=== PATIENT | female | born 1940 | race Caucasian/White ===

== ENCOUNTER 2019-12-07 10:37 | Outpatient (CLI) | payer MEDICARE, BC, SELFPAY | END 2019-12-07 10:38 | disposition home or self-care (01) | LOC: ANHBWCAUD 10:38 | DX: H91.93 Unspecified hearing loss, bilateral (principal) | CPT/HCPCS: 99199 ==

== ENCOUNTER 2020-09-09 13:05 | Outpatient (CLI) | payer MEDICARE, BC, SELFPAY | END 2020-09-09 13:06 | disposition home or self-care (01) | DX: H90.3 Sensorineural hearing loss, bilateral (principal) | CPT/HCPCS: 92557; 92567 ==

== ENCOUNTER 2021-09-15 08:59 | Outpatient (CLI) | payer MEDICARE, BC, SELFPAY | END 2021-09-15 09:00 | disposition home or self-care (01) | DX: H90.3 Sensorineural hearing loss, bilateral (principal) | CPT/HCPCS: 92557; 92567 ==

== ENCOUNTER 2022-01-12 08:55 | Emergency (ER) | payer MEDICARE, BC, SELFPAY ==
[2022-01-12 09:00] VITALS: BP 100/53; PULSE 81; RESP 16; TEMP 36.5; O2SAT 96
--- NOTE | 2022-01-12 09:12 | ECG_ITS ---
Measurements Intervals [place] Rate: 76 P: 57 WY: 158 QRS: -14 QRSD: 93 T: 37 QT: 387 QTc: 436 Interpretive Statements SINUS RHYTHM DELAYED PRECORDIAL R/S TRANSITION BORDERLINE ECG NO PREVIOUS ECG AVAILABLE FOR COMPARISON Electronically Signed On 01-12-2022 9:55:23 ZIPPER TRIMMER HAND by Anatoly Monsivais D.O.
--- NOTE | 2022-01-12 09:24 | ED.GENADULT ---
HPI - General Adult General Stated complaint: slurring words, running into things lethargic Source: patient and other (CAREGIVER) Mode of arrival: wheelchair Limitations: altered mental status History of Present Illness HPI narrative: Patient brought in by caregiver from detention with reports of AMS. Caregiver here in her company indicates she was informed by another resident at the home that pt was having difficulty putting her shoes on at 0800. Caregiver went in to check on patient and she was slumped over in a chair. She was exhibiting change in speech. Caregiver indicates that it was difficult to understand her verbally. Caregiver states that baseline status is A+Ox3 and ambulatory with walker. Last known normal was 0700 when pt was eating in dining room. On my examination pt denies any complaints whatsoever. Related Data Home Medications Medication Instructions Recorded Confirmed cholecalciferol (vitamin D3) 125 125 mcg PO DAILY 01/12/22 01/12/22 mcg (5,000 unit) tablet (Vitamin D3) diphenhydramine HCl 25 mg capsule 25 mg PO QID PRN Allergy Symptoms 01/12/22 01/12/22 (Banophen) furosemide 20 mg tablet 20 mg PO DAILY 01/12/22 01/12/22 levothyroxine 88 mcg tablet 88 mcg PO DAILY 01/12/22 01/12/22 memantine 28 mg capsule 28 mg PO DAILY 01/12/22 01/12/22 sprinkle,extended release 24hr multivitamin-iron 9 mg-folic acid 1 tablet PO DAILY 01/12/22 01/12/22 400 mcg-calcium and minerals tablet (Therems-M) naproxen sodium 220 mg capsule 220 mg PO BID 01/12/22 01/12/22 potassium chloride 20 mEq 20 meq PO DAILY 01/12/22 01/12/22 tablet,extended release(part/cryst) rivastigmine tartrate 3 mg capsule 3 mg PO BID 01/12/22 01/12/22 sertraline 100 mg tablet 100 mg PO DAILY 01/12/22 01/12/22 spironolactone 50 mg tablet 50 mg PO DAILY 01/12/22 01/12/22 Allergies Allergy/AdvReac Type Severity Reaction Status Date / Time No Known Allergies Allergy Mild Verified 01/12/22 09:28 Review of Systems Review of Systems: CONSTITUTIONAL: Denies fever, chills, or sweats. EYES: Denies visual changes, redness, or discharge. ENT: Denies rhinorrhea, congestion, sore throat, or otalgia. CARDIOVASCULAR: Denies chest pain, palpitations, or edema. RESPIRATORY: Denies cough or dyspnea. GASTROINTESTINAL: Denies abdominal pain, nausea, vomiting, or diarrhea. GENITOURINARY: Denies dysuria or hematuria. SKIN: Denies rash or itching. MUSCULOSKELETAL: Denies back pain, joint pain, or myalgia. NEUROLOGIC: Caregiver reports change in patient's speech. Pt denies headache, numbness, dizziness, or weakness. PSYCHIATRIC: Denies anxiety or depression. [facility] Past Medical History Medical History (Updated 01/12/22 @ 09:39 by Rory Moore, CARPET WINDER, ) Constipation Dementia Hypertension Hypothyroid Seizure Vitamin D deficiency Surgical History Surgical History Surgical history unknown Family History Family History Mother Family history of Alzheimer's disease Father Family history of heart disease in male family member before age 55 Other Diabetes mellitus Social History Social History Smoking status: Never smoker Alcohol intake: never Exam Narrative: GENERAL: Well-appearing, well-nourished, and in no acute distress. HEAD: Normocephalic, atraumatic. EYES: PERRLA and EOMI. ENT: Nares clear, no rhinorrhea or epistaxis. Edentulous. Mucous membranes moist. Oropharynx without tonsillar hypertrophy exudate or other lesions. Bilateral TMs pearly pickett nonbulging NECK: Supple. No adenopathy or masses. No carotid bruits or JVD CHEST: Clear to auscultation. No respiratory distress. No wheezes rales or rhonchi HEART: Regular rate and rhythm. No murmur heard. Normal peripheral pulses. ABDOMEN: Soft, nontender, nondistended, normal active bowel
== END 2022-01-12 09:39 | disposition short-term general hospital (02) ==
PROVIDERS: Emergency Provider Nurse Practitioner; PCP Physician Assistant
DX: R41.82 Altered mental status, unspecified (principal); R47.1 Dysarthria and anarthria; F03.90 Unspecified dementia, unspecified severity, without behavioral disturbance, psychotic disturbance, mood disturbance, and anxiety; I10 Essential (primary) hypertension; E03.9 Hypothyroidism, unspecified; E55.9 Vitamin D deficiency, unspecified
CPT/HCPCS: 93005; 99213; G0463

== ENCOUNTER 2022-11-03 13:24 | Outpatient (CLI) | payer MEDICARE, BC, MEDICAID, SELFPAY | END 2022-11-03 13:25 | disposition home or self-care (01) | LOC: ANHBWCAUD 13:28 | PROVIDERS: PCP Physician Assistant; Visit Provider Physician Assistant | DX: H91.93 Unspecified hearing loss, bilateral (principal) | CPT/HCPCS: 92557; 92567 ==

== ENCOUNTER 2023-11-01 08:56 | Outpatient (CLI) | payer MEDICARE, BC, MEDICAID, SELFPAY | END 2023-11-01 08:57 | disposition home or self-care (01) | LOC: ANHBWCAUD 08:56 | PROVIDERS: PCP Physician Assistant; Visit Provider Family Medicine | DX: H90.3 Sensorineural hearing loss, bilateral (principal); H61.23 Impacted cerumen, bilateral | CPT/HCPCS: 92557; 92567 ==

== ENCOUNTER 2024-11-06 09:30 | Outpatient (CLI) | payer MEDICARE, BC, MEDICAID, SELFPAY ==
--- OUTSIDE RECORDS SUMMARY | 2009-12-24 03:30 | XMS_ITS | Continuity of Care Document ---
Author Organization Formerly [facility] [place], [place] Address [address] [place] [address] Phone Care Team Providers Care Inspector Wire Rope Name Role Phone Rm Pena Unavailable Unavailable Procedures Procedure Date Eye Exam & Treatment Dilated Macular Or Fundus Exam Findings Communicat Oct Office/outpatient Visit, Est Office/outpatient Visit, Est Optic Nerve Head Eval No Script Dec- Office/outpatient Visit, Est Optic Nerve Head Eval No Script Optic Nerve Topography-Professional Optic Nerve Topography-Professional Corneal Pachymetry Fundus Photography W/ Report Optic Nerve Topography Optic Nerve Topography Visual Field Examination-Professional De Visual Field Examination(s) Eye Exam & Treatment Oct Optic Nerve Head Eval Eye Exam & Treatment Visual Functional Status Assessed Refraction Advance Directives Directive Yes / No Effective Date File Name No Information Encounters Encounter Description Practice Location Reason(s) For Visit Diagnoses Date Provider Providers Copied on Encounter [facility], [address], [place], [place], [id number], [place] tel:[phone] [facility] No Information Oct-2 0-201 0 Becky Abdalla. [address] , [address], [place], [address], [place]. tel:[phone] Office/outpat ient Visit, [facility], [address], [place], [place], [address], [place] tel:[phone] [facility] No Information 5-201 0 Becky Abdalla. [address] [facility] [address] , [address], [place], [place], [facility], . tel:[phone] Office/outpat ient Visit, [facility], [address] [place] [address] [address], [place], [place], [address], [place] tel:[phone] [facility] No Information 2-200 9 Becky Abdalla. [address] [facility] , [address], [place], [place], [facility], . tel:[phone] Office/outpat ient Visit, [facility], [address] [place] [address] [address], [place], [place], [address], [place] tel:[phone] [facility] No Information 5-200 9 Becky Abdalla. [address] [place], [place] [address] , [address], [place], [place], [facility], [place]. tel:[phone] Referring Provider: [address], [place], [place], [facility]. tel:[phone] [facility]ly [facility], [address] [place] [address] [address], [place], [place], [address], [place] tel:[phone] [facility] No Information 7-200 9 [facility]. [facility] , [address], [place], [facility], [place]. tel:[phone] Referring Provider: [address], [place], [facility]. tel:[phone] [facility]ly [facility], [address] [place] [address] [address], [place], [place], [address], [place] tel:[phone] [facility] No Information Dec-0 8-200 8 Becky Abdalla. [facility] [address], [address], [place], [facility], . tel:[phone] Referring Provider: Rm Sousa, [facility] [address], [place], [facility]. tel:[phone] [facility]ly [facility], [address] [place] [address] [address], [place], [place], [address], tel:[phone] [facility] No Information Dec-0 5-200 8 Becky Abdalla. [facility] [address] [address], [address], [place], [facility], . tel:[phone] Referring Provider: Rm Sousa, [facility] [address], [place], [facility]. tel:[phone] [facility], [address] [place] [address] [address], [place], [place], [address], tel:[phone] [facility] No Information Oct-2 0-200 8 Becky Abdalla. [facility] [address] [address], [address], [place], [facility], . tel:[phone] [facility], [address] [place] [address] [address], [place], [place], [address], tel:[phone] [facility] No Information Oct-1 7-200 7 Becky Abdalla. [facility] [address] [address], [address], [place], [facility], . tel:[phone] Family History Family Member Type Diagnosis Age At Onset No Information Payers Payer name Insurance type Covered democrat ID Authoriza tion(s) Medicare [facility] [id number] [place] BL [id number] Social History Type Description Quantity Date Captured Comments Sex Female Smoking Status No Information Chief Complaint And Reason For Visit No Information Reason For Referral Reason For Referral No Information History Of Present Illness Encounter Date Complaint History Of Prese nt Illness No Information Functional Status Date Functional Assessmen t No Information Instructions Date Instruction Additional Infor mation No Information Assessments Type Assessment Date No Information Patient Care Teams Name Effective Dates (start - stop) Status Members No Information
--- OUTSIDE RECORDS SUMMARY | 2024-11-06 09:45 | XMS_ITS | Clinical Summary ---
Author Organization [facility] [employer] Address [address] [place] [address] Care Team Providers Care Truck Headlight Assembler Name Role Phone Curt Logan MD Primary Care Provider [phone] Source Comments [facility],non-owned Affiliates and Associated Physician Practices is amultiple site organization consisting of ambulatory clinics and hospital sitesin [place], [place], [place] and [place]. This disclosure is being madepursuant to the Care Everywhere program and may not contain all information available regarding this patient. Last updated 17.[facility] [employer] Allergies No known active allergies Medications * Be aware that medications may not be up to date on this document. Alwaysverify current medications with the patient. Aspirin Low Dose 81 MG tablet 04/24/2022 Active atorvastatin (Lipitor) 10 MG tablet 04/24/2022 Active bisacodyl EC (Dulcolax) 5 MG tablet Take 2 (two) tablets by mouth once daily as needed Active vitamin D (Cholecaciferol ) 125 MCG (5000 UT) capsule 04/24/2022 Active furosemide (Lasix) 20 MG tablet 04/24/2022 Active memantine ER 24 hr (Namenda XR) 28 MG capsule 04/24/2022 Activ e naproxen sodium (Aleve) 220 MG tablet Take 1 (one) tablet by mouth 2 times daily with morning and evening meal Active neomycin-bacitr acin-polymyxin (Neosporin) 400-5-5000 topical ointment Apply to affected area 2 times daily as needed Active potassium chloride ER (Klor-Con M) 20 MEQ tablet 04/24/2022 Active rivastigmine (Exelon) 3 MG capsule 04/24/2022 Active sertraline (Zoloft) 100 MG tablet 04/24/2022 Active spironolactone (Aldactone) 50 MG tablet 04/24/2022 Active venlafaxine (Effexor) 37.5 MG tablet 05/22/2021 Active levothyroxine (Synthroid) 100 MCG tablet Take 1 (one) tablet by mouth once daily 06/10/2023 Active Active Problems Problem Noted Date Diagnosed Date 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 Dyspnea 05/07/2022 Dyslipidemia 05/07/2022 (HFpEF) heart failure with preserved ejection fr action 05/07/2022 Dementia, senile 05/07/2022 Social History Tobacco Use Types Packs/Day Years Used Date Smoking Tobacco: Never Smokeless Tobacco: Never Alcohol Use Standard Drinks/Week Comments Never 0 (1 standard drink = 0.6 oz pur e alcohol) Comments Unknown Sex and Gender Information Value Date Recorded Sex Assigned at Not on file Legal Sex Female 9:53 AM CDT Gender Identity Not on file Sexual Orientation Not on file Last Filed Vital Signs Vital Sign Reading Time Taken Comments Blood Pressure 119/60 12/23/2023 10:35 AM CDT Pulse 75 12/23/2023 10:35 AM CDT Temperature 36.5 C (97.7 F) 05/28/2022 12:35 PM CDT Respiratory Rate 12 05/28/2022 1:15 PM CDT Oxygen Saturation 97% 12/23/2023 10:35 AM CDT Inhaled Oxygen Concentration - - Weight 63 kg (139 lb) 12/23/2023 10:35 AM CDT Height 157.5 cm (5' 2) 12/23/2023 10:35 AM CDT Body Mass Index 25.42 12/23/2023 10:35 AM CDT Plan of Treatment Health Maintenance Due Date Last Done Comments MEDICARE AWV 12 MONTHS 1942 DTAP/TDAP/TD VACCINES (1 - Tdap) 1961 PNEUMOCOCCAL VACCINE 50+ (1 of 2 - PCV) 1961 ZOSTER VACCINE (1 of 2) 02/21/1992 Respiratory Syncytial Virus (RSV) Vaccine Pt: or over 60 yrs (1 - 1-dose 75+ series) 2017 COVID-19 VACCINE ( - 2023- season) 2023 DEPRESSION SCREENING 03/07/2024 INFLUENZA VACCINE (#1) 2024 , 12/17/2021, 12/11/2020, Additional history exists BONE DENSITY TESTING Completed 10/06/2021, 06/23/19 17 HEPATITIS B VACCINE Aged Out No longe r eligible based on patient's age to complete this topic HIB VACCINE Aged Out No longer eligi ble based on patient's age to complete this topic HPV VACCINE Aged Out No longer eligi ble based on patient's age to complete this topic MENINGOCOCCAL (Group B) VACCINE SHARED DECISION-MAKING Aged Out No longer eligible based on patient's age to complete this topic MENINGOCOCCAL GROUPS A/C/Y/W VACCINE Aged Out No longer eligible based on patient's age to complete this topic Insurance MEDICARE [facility] MEDICAID - OUT OF STATE MEDICARE [facility] MEDICAID - [place] Care Teams Truck Headlight Assembler Relationship Specialty Start Date End Date Curt Logan MD [address] [place] [id number] PCP - General 06/20/18
--- OUTSIDE RECORDS SUMMARY | 2024-11-06 09:45 | XMS_ITS | Patient Health Record ---
Author Organization [facility] [employer] Address [address] [place] [address] Care Team Providers Care Museum Technician Name Role Phone José Luis Lara Unavailable [phone] Reason For Referral No Information Medications Medication SIG (Take, Route, Frequency, Duration) Notes Start Date End Date Status Sertraline HCl 25 MG Tablet Oral 08/21/2021 Active Acetaminophen 325 MG Tablet Oral 08/21/2021 Active Rivastigmine Tartrate 3 MG Capsule Oral 08/21/2021 Active Furosemide 20 MG Tablet Oral 08/21/2021 Active Memantine HCl ER 28 MG Capsule Extended Release 24 Hour Oral 08/21/2021 Active TRIAMCINOLONE ACETONIDE 0.1 %-EMOLLIENT COMB.NO.45 TOPICAL CREAM *Reorder from [employer] for eRx and Interaction Alerts* 08/21/2021 Active NEOMYCIN-BACITRACN ZN-POLYMYXIN 3.5 MG-500 UNIT-10,000 UNIT TOP OINT *Reorder from [employer] for eRx and Interaction Alerts* 08/21/2021 Active Venlafaxine HCl ER 37.5 MG Capsule Extended Release 24 Hour Oral 08/21/2021 Active Bisacodyl EC 5 MG Tablet Delayed Release Oral 08/21/2021 Activ e Sertraline HCl 50 MG Tablet Oral 08/21/2021 Active Permethrin 5% Cream External 08/21/2021 Active Vitamin D3 Ultra Strength 125 MCG (5000 UT) Capsule Oral 08/21/2021 Active Naproxen Sodium 220 mg Capsule Oral 08/21/2021 Active ALUM-MAG HYDROXIDE-SIMETHICONE 200-200-20 mg/5 mL Suspension Oral *Reorder from [employer] for eRx and Interaction Alerts* 08/21/2021 Active Sertraline HCl 100 MG Tablet Oral 08/21/2021 Active Therems-M *Pick strength-form from [employer] for eRX* 08/21/2021 Active guaiFENesin 100 MG/5ML Liquid Oral 08/21/2021 Active Spironolactone 50 MG Tablet Oral 08/21/2021 Active Potassium Chloride Nadja ER 20 MEQ Tablet Extended Release Oral 08/21/2021 Active Levothyroxine Sodium 88 MCG Tablet Oral 08/21/2021 Active Immunizations Vaccine Route Administration Date Status Comme nts Influenza virus vaccine, quadrivalent (IIV4), split virus, 0.25 mL dosage Unknown 12/05/2017 Administered Influenza virus vaccine, quadrivalent (IIV4), split virus, 0.25 mL dosage Unknown 12/13/2018 Administered Influenza, high dose seasonal Unknown 11/25/2014 Admini stered Influenza, high dose seasonal Unknown 11/11/2015 Admini stered Influenza, injectable, MDCK, preservative free Unknown 12/13/2018 Administered Influenza, seasonal, injecta ble, preservative free, 3 yrs and above Unknown 01/24/2017 Administered Influenza, unspecified formulation Unknown 12/17/2011 A dministered Influenza, unspecified formulation Unknown 12/11/2012 A dministered Influenza, unspecified formulation Unknown 12/18/2013 A dministered Influenza, unspecified formulation Unknown 12/21/2019 A dministered Influenza, unspecified formulation Unknown 12/11/2020 A dministered Novel [id number], preservative free Unknown 12/15/2016 Administered Novel [id number], preservative free Unknown 12/22/2017 Administered Pfizer [employer] Covid-19 Vac cine 2nd dose Unknown 04/15/2020 Administered Pfizer [employer] Covid-19 Vac cine 2nd dose Unknown 05/06/2020 Administered Pfizer [employer] Covid-19 Vac cine 2nd dose Unknown 12/11/2020 Administered Pneumococcal conjugate PCV 13 Unknown 11/25/2014 Admini stered Pneumococcal conjugate PCV 13 Unknown 11/11/2015 Admini stered Pneumococcal conjugate PCV 13 Unknown 01/31/2017 Admini stered Pneumococcal polysaccharide PPV23 Unknown 11/11/2015 Ad ministered Tdap Unknown 06/08/2018 Administered Social History Social History Additional Details Category Social Info Options Details Migrated Social History Migrated Social History Alcohol Intake: None 05/01/2018,Tobacco Years: Never smoker 01/05/2018 Plan Of Treatment No Information Insurance Providers Payer Name Payer Address Payer Phone Subscriber Number Group Number Insured Name Patient Relationship to Insured Coverage Start Date Coverage End Date Medicare-I l Medicare [address] [place] [phone] [id number] AMARILIS ADAMS Self - patient is the insured Bc-[place] - Fep Ppo [address] [place] [address] [id number] AMARILIS ADAMS Self - patient is the insured Medicaid-[place] l Medicaid [address] [address] [place] [address] [id number] AMARILIS ADAMS Self - patient is the insured
--- OUTSIDE RECORDS SUMMARY | 2024-11-06 09:45 | XMS_ITS | Clinical Summary ---
Author Organization [facility] Address [address] [place] [address] Phone Care Team Providers Care Fire And Explosion Investigator Name Role Phone Nivia Domingo PAC Primary Care Pro vider Yecenia Caballero APRN, RN DOCUMENTATION Unavailable + [phone] Julian Buchanan MD Unavailable [phone] Rosa Quintero APRN, PROJECT MANAGER/DESIGN MANAGER Unavailable Allergies No known active allergies Medications furosemide (LASIX) 20 MG Tablet Take 1 Tab by mouth daily. 90 Tab 3 6 Active NAMENDA XR 28 MG CAPSULE SR 24 HR Take 1 Cap by mouth daily. 30 Cap 99 6 Active rivastigmine (EXELON) 3 MG CapsuleIndications :1 tab 7am and 9om Take 1 Cap by mouth 2 times daily. Indications : 1 tab 7am and 9om 60 Cap 1 6 Active spironolactone (ALDACTONE) 50 MG Tablet Take 1 Tab by mouth daily. 30 Tab 3 6 Active diphenhydrAMINE (BENADRYL) 25 MG Capsule Take 25 mg by mouth every 6 hours as needed. Active acetaminophen (TYLENOL) 325 MG Tablet Take 650 mg by mouth every 4 hours as needed. Active Calcium & Magnesium Carbonates (MYLANTA PO) Take 30 mL by mouth every 4 hours as needed. Active bisacodyl EC (DULCOLAX) 5 MG Tablet Delayed Response Take 10 mg by mouth daily as needed for Constipatio n. Active BISMUTH SUBSALICYLATE PO Take 30 mL by mouth as needed for Other. Active aluminum & magnesium hydroxide-simethic one (MAALOX, MYLANTA) 200-200-20 MG/5ML Suspension Take 30 mL by mouth every 4 hours as needed. Active potassium chloride SA (KLORCON M) 20 MEQ Tablet Controlled Release Take 1 Tab by mouth daily. 90 Tab 3 7 Active Cholecalciferol (VITAMIN D3) 5000 units Capsule Take 1 daily 30 Cap 7 Active naproxen sodium (ANAPROX) 220 MG Tablet Take 220 mg by mouth 2 times daily (with meals). Active sertraline (ZOLOFT) 100 MG Tablet 2 Active Multiple Vitamins-Minerals (THEREMS-H PO) Take by mouth. Active aspirin EC 81 MG Tablet Delayed Response Take 1 Tablet by mouth daily. 2 Active atorvastatin (LIPITOR) 10 MG Tablet Take 1 Tablet by mouth daily. 90 Tablet 3 2 Active levothyroxine (SYNTHROID) 100 MCG Tablet Take 1 Tablet by mouth daily. 90 Tablet 3 4 Active diphenhydrAMINE-zi nc acetate (Banophen) 2-0.1 % Cream 0 Active Active Problems Problem Noted Date Diagnosed Date Primary osteoarthritis of left hip 07/13/2018 Overview (11/17/2018): Dr Mcgarry H/O colonoscopy 11/16/2017 Overview (11/16/2017): 02-16-2016 Breast mass, left 05/23/2017 CAP (community acquired pneumonia) 01/30/2017 Influenza A 01/30/2017 Gait instability 11/10/2016 Uses walker 11/10/2016 Varicose veins of left lower extremity 7 Presbycusis of both ears 06/16/2016 Central auditory processing disorder (CAPD) 06/05 H/O mammogram 06/08/2016 Overview (06/08/2016): : benign Dermatophytosis of nail 06/04/2016 Tympanosclerosis involving tympanic membrane onl y 05/18/2016 Low vitamin D level 04/29/2016 At risk for electrolyte imbalance 04/14/2016 Intellectual delay 11/11/2015 Seizure 11/11/2015 Late onset Alzheimer's disea se without behavioral disturbance 11/11/2015 Spinal stenosis 11/11/2015 Hypothyroid 11/11/2015 Edema 11/11/2015 Encounters Date Type Department Care Team Description 11/01/2024 10:30 AM CDT Office Visit [facility] [address] [place] [address] Nivia Domingo PAC Hypothyroidism, unspecified type (Primary Dx); Late onset Alzheimer's disease without behavioral disturbance (HCC); Low vitamin D level; Vitamin D deficiency; Need for hepatitis C screening test; Screening for osteoporosis; Post-menopausal Discharge Disposition: Discharged to home or Selfcare 11/01/2024 Travel 10/11/2024 Results Follow-Up [facility] [address] [place] [address] Patrick Owusu MD [facility]AR[facility] SCREENING BILATERAL DIGITAL W CAD 10/10/2024 12:00 PM CDT - 10/10/2024 11:59 PM CDT Hospital [facility] [address] [place] [address] Nivia Domingo PAC Discharge Disposition: Discharged to home or Selfcare 10/10/2024 Travel 10/01/2024 Results Follow-Up [facility] Adult Pediatric Inpatient Virtual [address] [place] [address] Rosa Quintero APRN, CNP CMP (COMPREHENSIVE METABOLIC PANEL) 09/12/2024 9:00 AM CDT Office Visit [facility] [address] [place] [address] Rosa Quintero APRN, CNP Primary hypertension (Primary Dx); Mitral valve insufficiency, unspecified etiology; Hyperlipidemia, unspecified hyperlipidemia type Discharge Disposition: Discharged to home or Selfcare 09/12/2024 Travel 08/07/2024 Transcribe Orders [facility] [address] [place] [address] [place] [address] Nivia Domingo, PAC Visit for screening mammogram (Primary Dx) from Last 3 Months Immunizations Immunization Administration Dates Next Due Influenza Vaccine greater than 3 yrs 01/24/2017 Influenza Vaccine, Quadrivalent, PF 11/06,12/17/2021,12/11/2020,2017,12/15/2016 Influenza Vaccine,unspecifie d Formulation 12/18/2013,12/11/2012,12/17/2011 Influenza, Injectable, Mdck,quadrivalent,with Preservative 12/13/2018 Influenza, Injectable, Quadrivalent 12/05/2017 Influenza, Quadrivalent, Adjuvanted 12/21/2019 Influenza, Seasonal, Injecta ble, Undefined 01/24/2017 Influenza, high-dose, trivalent, PF 11/11/2015,0 11/25/2014 Influenza,Split Virus,Trivalent,Injectable,PF 11/25/2023 PNEUMONIA ADULT IM [id number] 11/11/2015 PUR FLU HIGH DOSE (FLUZONE) 11/11/2015 Pneumococcal Vaccine - 13 Valent 01/31/2017,11/06 Pneumococcal Vaccine Adult - 23 Valent 11/11/2015 TDAP Vaccine 06/08/2018 Family History Relation Name Status Comments Father Mother Social History Tobacco Use Types Packs/Day Years Used Date Smoking Tobacco: Never Smokeless Tobacco: Never Tobacco Cessation:Counseling Given: No Alcohol Use Standard Drinks/Week Comments No 0 (1 standard drink = 0.6 oz pur e alcohol) PHQ-2 Answer Date Recorded Total Score - Questions 1-9 0 05/2019 Sexually Active Control Partners Comments Not Currently Comments No Sex and Gender Information Value Date Recorded Sex Assigned at Not on file Legal Sex Female 10:30 AM CDT Gender Identity Not on file Sexual Orientation Not on file Occupation Industry Job Start Date Job End Date disabled has mid MR Not on file Not on file Not on f ile Last Filed Vital Signs Vital Sign Reading Time Taken Comments Blood Pressure 92/60 11/01/2024 10:31 AM CDT Pulse 75 11/01/2024 10:31 AM CDT Temperature 36.4 C (97.5 F) 11/01/2024 10:31 AM CDT Respiratory Rate 12 11/01/2024 10:31 AM CDT Oxygen Saturation 97% 11/01/2024 10:31 AM CDT Inhaled Oxygen Concentration - - Weight 67.1 kg (148 lb) 11/01/2024 10:31 AM CDT Height 157.5 cm (5' 2) 07/16/2024 9:07 AM CDT Body Mass Index 27.07 07/16/2024 9:07 AM CDT Plan of Treatment Upcoming Encounters Date Type Department Care Team (Late st Contact Info) Description 11/13/2024 1:00 PM CDT Appointment [facility] Mammography [address] [place] [address] Nivia Domingo, PAC [address] [place] [address] Discharge Disposition: Discharged to home or Selfcare 01/15/2025 8:00 AM WOOD HEEL FLAP INSERTER Office Visit [facility] - [place] [address] [place] [address] Yecenia Caballero MUSEUM SERVICE SCHEDULER, RN DOCUMENTATION [address] [place] [address] 03/15/2025 9:30 AM WOOD HEEL FLAP INSERTER Office Visit [facility] - Cardiology - [place] [address] [place] [address] Rosa Quintero, MUSEUM SERVICE SCHEDULER, PROJECT MANAGER/DESIGN MANAGER [address] [place] [address] 05/07/2025 10:00 AM WOOD HEEL FLAP INSERTER Office Visit [facility] - [place] [address] [place] [id number] Nivia Domingo, PAC [address] [place] [address] Health Maintenance Due Date Last Done Comments Hepatitis C Virus (HCV) Screening 1940 Zoster Immunization (1 of 2) 02/21/1992 DEXA Bone Density 10/07/2023 10/06/2021, 06/22/2016 Influenza Immunization (#1) 11/05/202411/06, 11/29/2022, 12/17/2021, Additional history exists SARS-COV-2 Immunization ( season) 2024 02/07/2023, 12/17/2021, 10/16/2021, Additional history exists Td Immunization Every 10 Years (Adults With 1 Tdap) 06/08/2028 06/08/2018 Pneumococcal Immunization (50+ years) Completed 01/31/2017, 11/11/2015, 11/11/2015, Additional history exists Pneumococcal Immunization Combined Discontinued 01/31/2017, 11/11/2015, 11/11/2015, Additional history exists Respiratory Syncytial Virus (RSV) Immunization (Adult) Completed 04/14/2023 Hepatitis B Immunization Aged Out No longer eligible based on patient's age to complete this topic Human Papillomavirus (HPV) Immunization Aged Out No longer eligible based on patient's age to complete this topic Meningococcal Immunization (ACWY) Aged Out No longer eligible based on patient's age to complete this topic Rotavirus Immunization Aged Out No lo nger eligible based on patient's age to complete this topic Medical Devices Implanted Type Area Datawarehouse Developer Device Identifier Shelf Expiration Date Model / Serial / Lot Shell Actb 52mm Hip 7 Screw Hole Biofoam Dynasty - [id number] Implanted:Qty: 1 on 07/13/2018 by Ryan Mcgarry MD at [facility] IMPLANT Left: Hip [employer] 01/10/2026 [id number] / [id number] / [id number] Screw Bone 6.5mm 25mm Dynasty Lineage Biofoam Actb - [id number] Implanted:Qty: 1 on 07/13/2018 by Ryan Mcgarry MD at [facility] IMPLANT Left: Hip [employer] 12/24/2024 [id number] / [id number] / [id number] Screw Bone 6.5mm 25mm Dynasty Lineage Biofoam Actb - [id number] Implanted:Qty: 1 on 07/13/2018 by [facility] IMPLANT Left: Hip [employer] 08/17/2025 [id number] / [id number] / [id number] Implant Hip Acetabular Liner A Class Dynasty 15deg Group D 3 - [id number] Implanted:Qty: 1 on 07/13/2018 by [facility] IMPLANT Left: Hip [employer] 06/05/2019 [id number] / [id number] / [id number] Implant Hip Femoral Stem Reduced Profemur Renaissance Size 1 - [id number] Implanted:Qty: 1 on 07/13/2018 by Ryan Mcgarry [facility] at [facility] IMPLANT Left: Hip [employer] 09/23/2024 [id number] / [id number] / [id number] Neck Fem Profemur 8d Short Robinson Antegrade Retrograde - [id number] Implanted:Qty: 1 on 07/13/2018 by Ryan Mcgar[facility] MD at [facility] IMPLANT Left: Hip [employer] 12/20/2025 [id number] / [id number] / [id number] Biolox Elta Femoral Head Implanted:Qty: 1 on 07/13/2018 by Ryan Mcgarry MD at [facility] Left: Hip [employer] 06/02/2026 [id number] / [id number] / [id number] Procedures Procedure Name Priority Date/Time Associated Diagnosis Comments [facility] SCREENING BILATERAL DIGITAL W CAD Routine 10/10/2024 12:36 PM CDT Visit for screening mammogram CMP (COMPREHENSIVE METABOLIC PANEL) 09/19/2024 12:00 AM CDT [facility] BONE DENSITOMETRY AXIAL SKELETON Routine 10/06/2021 9:25 AM CDT Post-menopausal from Last 3 Months or Most Recently Relevant to Health Maintenance Results * [facility] SCREENING BILATERAL DIGITAL W CAD (10/10/2024 12:36 PM CDT) Anatomical Region Laterality Modality breast Bilateral Mammography 10/10/2024 12:0 7 PM CDT Narrative 10/11/2024 8:04 AM CDT - [facility] SCREENING BILATERAL DIGITAL W CAD BILATERAL DIGITAL SCREENING MAMMOGRAM 3D/2D WITH CAD WITH MEDIOLATERAL OBLIQUE CRANIOCAUDAL: 10/10/2024 The study was acquired using digital technology and interpreted from soft copy. Current study was also evaluated with ICAD version 7.2. 2D digital mammographic views, as well as 3D digital tomosynthesis were performed in the CC and MLO projections. CLINICAL: Routine screening. Patient has no complaints. Patient is from a assisted. Patient was unable to fully cooperate with positioning and has limited range of motion. Unable to suspend respirtions. No personal history of cancer. Family history of breast cancer unknown. COMPARISONS: Comparison is made to exams dated: 10/07/2023, 10/01/2022, and 09/30/2021 [facility]. BREAST TISSUE:There are scattered areas of fibroglandular density. FINDINGS: No significant masses, calcifications, or other findings are seen in either breast. There has been no significant interval change. IMPRESSION: NEGATIVE There is no mammographic evidence of malignancy. A 1 year screening mammogram is recommended. A letter will be sent to the patient with these results. The patient will be entered into a reminder system with a target due date of 1 year for her next screening exam. Electronically signed by: Sabino braun/katelyn:10/10/2024 16:54:38 Cmo(s): RT Tim(R)(M), [facility] letter sent: Normal Exam Reading location: [facility] Mammogram BI-RADS: Category 1: Negative Procedure Note Sabino Souza MD - 10/11/2024 - [facility] SCREENING BILATERAL DIGITAL W CAD BILATERAL DIGITAL SCREENING MAMMOGRAM 3D/2D WITH CAD WITH MEDIOLATERAL OBLIQUE CRANIOCAUDAL: 10/10/2024 The study was acquired using digital technology and interpreted from soft copy. Current study was also evaluated with ICAD version 7.2. 2D digital mammographic views, as well as 3D digital tomosynthesis were performed in the CC and MLO projections. CLINICAL: Routine screening. Patient has no complaints. Patient is from a assisted. Patient was unable to fully cooperate with positioning and has limited range of motion. Unable to suspend respirtions. No personal history of cancer. Family history of breast cancer unknown. COMPARISONS: Comparison is made to exams dated: 10/07/2023, 10/01/2022, and 09/30/2021 [facility]. BREAST TISSUE:There are scattered areas of fibroglandular density. FINDINGS: No significant masses, calcifications, or other findings are seen in either breast. There has been no significant interval change. IMPRESSION: NEGATIVE There is no mammographic evidence of malignancy. A 1 year screening mammogram is recommended. A letter will be sent to the patient with these results. The patient will be entered into a reminder system with a target due date of 1 year for her next screening exam. Electronically signed by: Sabino braun/katelyn:10/10/2024 16:54:38 Cmo(s): RT Tim(R)(M), [facility] letter sent: Normal Exam Reading location: [place] Mammogram BI-RADS: Category 1: Negative Nivia Domingo PAC IMG MAMMO ORDERAB LES Final Result * CMP (COMPREHENSIVE METABOLIC PANEL) (09/19/2024 12:00 AM CDT) 09/19/2024 Rosa Quintero APRN, PROJECT MANAGER/DESIGN MANAGER CHEMISTRY PINKY SANCHEZ Final Result SCAN * [facility] BONE DENSITOMETRY AXIAL SKELETON (10/06/2021 9:25 AM CDT) Anatomical Region Laterality Modality BODY N/A Computed Radiogr aphy 10/06/2021 9:47 AM CDT Impressions 10/06/2021 9:50 AM CDT IMPRESSION: According to the World Health Organization criteria, based on the left femoral neck bone mineral density (T-score -2.0 ), the patient has low bone mass (osteopenia) . REFERENCE: Bone mineral density: Normal (T-score above or = -1.0) Low bone mass (T-score between -1.0 and -2.5) replaces the previously used term osteopenia Osteoporosis (T-score = or below -2.5) Medical evaluation for secondary causes of low bone mineral density may be appropriate. FRAX is a World Health Organization validated fracture risk assessment tool that calculates a person's 10 year probability of a major osteoporosis related fracture and hip fracture. According to the National Osteoporosis Foundation guidelines, postmenopausal women and men age 50 or older with low bone mass and a 10 year probability of a major osteoporosis related fracture = or greater than 20% or a 10 year probability of a hip fracture = or greater than 3% should be considered for treatment. For further information, including treatment recommendations, please refer to the 2013 ISCD Official Positions (http://www.iscd.org) and the NOF's Clinician's Guide to Prevention and Treatment of Osteoporosis (http://www.nof.org/professionals/clinical-guidelines) Narrative 10/06/2021 9:50 AM CDT EXAM DESCRIPTION: [facility] BONE DENSITOMETRY AXIAL SKELETON REASON FOR STUDY: 81 y/o year old F . Screening Datawarehouse Developer/Model: Dynis (S/N [id number]) COMPARISON: 06/22/2016 FINDINGS: LEFT FEMORAL NECK: T-score is -2.0 LEFT HIP: T-score is -1.7 LUMBAR SPINE L1-L4: T-score is 3.4 In this patient not currently on bisphosphonate therapy, the 10 year probability for major osteoporotic fracture is 15.6% and hip fracture is 4.5%. There has been a statistically significant 4.8% increase in lumbar spine bone mineral density since 06/22/2016. THIS IS AN ELECTRONICALLY VERIFIED FINAL REPORT 10/06/2021 9:47 AM - Electronically signed by Chintan Marinelli M.D. JR: Report ID: [id number] Reading Location: [id number] Procedure Note Chintan Marinelli MD - 10/06/2021 EXAM DESCRIPTION: [facility] BONE DENSITOMETRY AXIAL SKELETON REASON FOR STUDY: 81 y/o year old F . Screening Datawarehouse Developer/Model: Dynis (S/N [id number]) COMPARISON: 06/22/2016 FINDINGS: LEFT FEMORAL NECK: T-score is -2.0 LEFT HIP: T-score is -1.7 LUMBAR SPINE L1-L4: T-score is 3.4 In this patient not currently on bisphosphonate therapy, the 10 year probability for major osteoporotic fracture is 15.6% and hip fracture is 4.5%. There has been a statistically significant 4.8% increase in lumbar spine bone mineral density since 06/22/2016. THIS IS AN ELECTRONICALLY VERIFIED FINAL REPORT 10/06/2021 9:47 AM - Electronically signed by Chintan Marinelli M.D. JR: Report ID: [id number] Reading Location: [place] [address] IMPRESSION: According to the World Health Organization criteria, based on the left femoral neck bone mineral density (T-score -2.0 ), the patient has low bone mass (osteopenia) . REFERENCE: Bone mineral density: Normal (T-score above or = -1.0) Low bone mass (T-score between -1.0 and -2.5) replaces the previously used term osteopenia Osteoporosis (T-score = or below -2.5) Medical evaluation for secondary causes of low bone mineral density may be appropriate. FRAX is a World Health Organization validated fracture risk assessment tool that calculates a person's 10 year probability of a major osteoporosis related fracture and hip fracture. According to the National Osteoporosis Foundation guidelines, postmenopausal women and men age 50 or older with low bone mass and a 10 year probability of a major osteoporosis related fracture = or greater than 20% or a 10 year probability of a hip fracture = or greater than 3% should be considered for treatment. For further information, including treatment recommendations, please refer to the 2013 ISCD Official Positions (http://www.iscd.org) and the NOF's Clinician's Guide to Prevention and Treatment of Osteoporosis (http://www.nof.org/professionals/clinical-guidelines) us Nivia Yecenia Chayo PAC IMG DEXA ORDERABL ES Final Result from Last 3 Months or Most Recently Relevant to Health Maintenance Insurance [place]IC[place] [address] [place] [address] Advance Directives Documents on File Type Date Recorded Patient Almond Sorter Expl anation Power of Senior Cost Analyst for Health Care 07/05/2018 3:53 PM RECORD INDICAT ING SUCCESSOR POA Power of Senior Cost Analyst for Health Care 07/05/2018 3:52 PM SHORT FORM POA FOR HEALTH CARE * Full Code (Latest Code Status on File) Date Activated Date Inactivated Comments 07/14/2018 1:04 PM 07/16/2018 4:09 PM CPR-Full Jasson atment: FULL ARREST: Attempt Resuscitation/CPR wit intubation and mechanical ventilation. PRE-ARREST: Use entire range of life support measures to stabilize the patient. * Full Code Date Activated Date Inactivated Comments 02/02/2017 1:15 PM 02/02/2017 5:31 PM CPR-Full T reatment: FULL ARREST: Attempt Resuscitation/CPR wit intubation and mechanical ventilation. PRE-ARREST: Use entire range of life support measures to stabilize the patient. Care Teams Fire And Explosion Investigator Relationship Specialty Start Date End Date Nivia Domingo, PAC PCP - General Physician Off Premise Service Representative 11/11/15 Yecenia Caballero APRN, RN DOCUMENTATION [address] [place] [address] Nurse Practitioner Neurology 02/24/22 Julian Buchanan MD [address] [place] [id number] Consulting Physician Neurology 08/05/22 Rosa Quintero APRN, PROJECT MANAGER/DESIGN MANAGER [address] [place] [phone] Nurse Practitioner Cardiology 09/12/24
== END 2024-11-06 09:31 | disposition home or self-care (01) ==
LOC: ANHBWCAUD 09:31
PROVIDERS: PCP Physician Assistant; Visit Provider Physician Assistant
DX: H90.3 Sensorineural hearing loss, bilateral (principal); H74.8X3 Other specified disorders of middle ear and mastoid, bilateral; H61.23 Impacted cerumen, bilateral; H73.893 Other specified disorders of tympanic membrane, bilateral
CPT/HCPCS: 92557; 92567